=== PATIENT | male | born 1965 | race Caucasian/White ===

== ENCOUNTER 2021-01-26 10:58 | Emergency (ER) | payer BC ==
[2021-01-26] MEDS ORDERED: Apixaban 5 MG Tab PO ONE (11:50)
[2021-01-26] MEDS ORDERED: Metoprolol Tartrate 5 MG/5 ML SDV IVPUSH ONE (11:50)
[2021-01-26] MEDS: Metoprolol Succinate 50 MG Tab.ER PO ONE ×2 (12:25→13:21)
--- NOTE | 2021-01-26 12:32 | CR ---
Chest: 2 views of the chest were obtained. Comparison: No previous chest imaging is available. Heart is slightly enlarged. Tortuous thoracic aorta is seen. Lungs are clear with no acute parenchymal change. Mild scoliosis is noted within the spine. Mild degenerative change is scattered within the spine. Old healed left clavicle fracture is noted. Impression: 1. Heart size is slightly enlarged. Other findings as noted above which are chronic. 2. Nothing acute is seen. Diagnostic code #2
[2021-01-26] MEDS ORDERED: Diltiazem 100 MG in Sodium Chloride 0.9% 100 ML IV SCH (13:15)
--- NOTE | 2021-01-26 13:24 | EDM.PDOC ---
ED HPI GENERAL MEDICAL PROBLEM - General Chief Complaint: Cardiovascular Problem Stated Complaint: BLOOD PRESSURE Time Seen by Provider: 01/26/21 11:13 Source of Information: Reports: Patient, RN Notes Reviewed History Limitations: Reports: No Limitations - History of Present Illness INITIAL COMMENTS - FREE TEXT/NARRATIVE: Patient is a 55-year-old male presenting to the emergency department from the [facility] with complaints of new onset A. fib and hypertension. He was being seen in the clinic for some leg pain he has been having and was found to have an irregular rhythm and elevated blood pressure. Patient reports that he has had no symptoms associated this. Denies any chest pain, shortness of breath, or palpitations. He has not seen a doctor in the last 6 years, therefore is difficult to say how long he was in A. fib. He has no chronic medical conditions. Only medications he takes are naproxen and a multivitamin. On arrival to ER, blood pressure was significant elevated at 211/83, heart rate 125 and irregular. - Related Data Allergies Allergy/AdvReac Type Severity Reaction Status Date / Time No Known Allergies Allergy Verified 01/26/21 11:21 Home Meds: Home Meds Multivitamin [Multi-Vitamin Daily] 1 tab PO DAILY 01/26/21 [History] Naproxen Sodium [Aleve] 220 mg PO DAILY PRN 01/26/21 [History] Past Medical History - Past Health History Medical/Surgical History: Denies Medical/Surgical History - Past Surgical History Musculoskeletal Surgical History: Reports: Knee Replacement Social & Family History - Tobacco Use Tobacco Use Status *Q: Current Every Day Tobacco User Years of Tobacco use: 30 Packs/Tins Daily: 1 Used Tobacco, but Quit: No Second Hand Smoke Exposure: No - Caffeine Use Caffeine Use: Reports: Coffee, Soda - Recreational Drug Use Recreational Drug Use: No ED ROS GENERAL - Review of Systems Review Of Systems: Comprehensive ROS is negative, except as noted in HPI. ED EXAM, GENERAL - Physical Exam Exam: See Below General Appearance: Alert, WD/WN, No Apparent Distress Respiratory/Chest: No Respiratory Distress, Lungs Clear, Normal Breath Sounds, No Accessory Muscle Use, Chest Non-Tender Cardiovascular: Normal Peripheral Pulses, No Edema, No Gallop, No JVD, No Murmur, No Rub, Tachycardia, Irregularly Irregular GI/Abdominal: Normal Bowel Sounds, Soft, Non-Tender, No Organomegaly, No Distention, No Abnormal Bruit, No Mass Extremities: Normal Inspection, Normal Range of Motion, Non-Tender, Normal Capillary Refill, No Pedal Edema Neurological: Alert, Oriented, CN II-XII Intact, Normal Cognition, Normal Gait, Normal Reflexes, No Motor/Sensory Deficits Psychiatric: Normal Affect, Normal Mood Skin Exam: Warm, Dry, Intact, Normal Color, No Rash #1 Interpretation EKG Date: 01/26/21 Time: 11:24 Rhythm: NSR Rate (Beats/Min): 123 [place]: LAD-Left [place] Deviation P-Wave: Absent QRS: Normal ST-T: Depressed QT: Prolonged Comparison: NA - No Prior EKG EKG Interpretation Comments: A. fib with rate 95 to 150/min Left axis deviation Left anterior fascicular block pattern ST segment depression [id number],2,3,&abef\spelled-consider ischemia QTC is markedly prolonged EKG interpreted by Dr. Ivonne CAST Course - Vital Signs Last Recorded V/S: Last Vital Signs Temp 97.6 F 01/26/21 11:26 Pulse 109 H 01/26/21 12:25 Resp 17 01/26/21 11:26 BP 201/102 H 01/26/21 14:06 Pulse Ox 98 01/26/21 11:26 - Orders/Labs/Meds Labs: Laboratory Tests 01/26/21 01/26/21 01/26/21 Range/Units 11:37 11:37 11:37 WBC 7.00 (4.23-9.07) K/mm3 RBC 5.40 (4.63-6.08) M/mm3 Hgb 16.3 (13.7-17.5) gm/dl Hct 48.2 (40.1-51.0) % MCV 89.3 (79.0-92.2) fl MCH 30.2 (25.7-32.2) pg MCHC 33.8 (32.2-35.5) g/dl RDW Std Deviation 46.2 H (35.1-43.9) fL Plt Count 211 (163-337) K/mm3 MPV 10.9 (9.4-12.3) fl Neut % (Auto) 71.3 H (34.0-67.9) % Lymph % (Auto) 18.7 L (21.8-53.1) % [place] % (Auto) 7.6 (5.3-12.2) % Eos % (Auto) 1.7 (0.8-7.0) Baso % (Auto) 0.6 (0.1-1.2) % Neut # (Auto) 4.99 (1.78-5.38) K/mm3 Lymph # (Auto) 1.31 L (1.32-3.57) K/mm3 [place] # (Auto) 0.53 (0.30-0.82) K/mm3 Eos # (Auto) 0.12 (0.04-0.54) K/mm3 Baso # (Auto) 0.04 (0.01-0.08) K/mm3 Sodium 142 (136-145) mEq/L Potassium 4.4 (3.5-5.1) mEq/L Chloride 105 (98-107) mEq/L Carbon Dioxide 25 (21-32) mEq/L Anion Gap 16.4 H (5-15) BUN 17 (7-18) mg/dL Creatinine 1.1 (0.7-1.3) mg/dL Est Cr Clr Drug Dosing 74.98 mL/min Estimated GFR (MDRD) > 60 (>60) mL/min BUN/Creatinine Ratio 15.5 (14-18) Glucose 141 H (70-99) mg/dL Calcium 9.5 (8.5-10.1) mg/dL Magnesium 2.0 (1.8-2.4) mg/dL Total Bilirubin 2.3 H (0.2-1.0) mg/dL AST 24 (15-37) U/L ALT 33 (16-63) U/L Alkaline Phosphatase 132 H (46-116) U/L Troponin I 0.113 H* (0.00-0.056) ng/mL NT-Pro-B Natriuret Pep 2559 H (0-125) pg/mL Total Protein 7.8 (6.4-8.2) g/dl Albumin 5.0 (3.4-5.0) g/dl Globulin 2.8 gm/dL Albumin/Globulin Ratio 1.8 (1-2) Urine Color (Yellow) Urine Appearance (Clear) Urine pH (5.0-8.0) Ur Specific [place] (1.005-1.030) Urine Protein (Negative) Urine Glucose (UA) (Negative) Urine Ketones (Negative) Urine Occult Blood (Negative) Urine Nitrite (Negative) Urine Bilirubin (Negative) Urine Urobilinogen (0.2-1.0) Ur Leukocyte Esterase (Negative) Urine RBC (0-5) /hpf Urine WBC (0-5) /hpf Ur Epithelial Cells (0-5) /hpf Urine Bacteria (FEW) /hpf Urine Mucus (FEW) /hpf SARS-CoV-2 RNA (SABRINA) (NEGATIVE) 01/26/21 01/26/21 Range/Units 12:10 13:10 WBC (4.23-9.07) K/mm3 RBC (4.63-6.08) M/mm3 Hgb (13.7-17.5) gm/dl Hct (40.1-51.0) % MCV (79.0-92.2) fl MCH (25.7-32.2) pg MCHC (32.2-35.5) g/dl RDW Std Deviation (35.1-43.9) fL Plt Count (163-337) K/mm3 MPV (9.4-12.3) fl Neut % (Auto) (34.0-67.9) % Lymph % (Auto) (21.8-53.1) % [place] % (Auto) (5.3-12.2) % Eos % (Auto) (0.8-7.0) Baso % (Auto) (0.1-1.2) % Neut # (Auto) (1.78-5.38) K/mm3 Lymph # (Auto) (1.32-3.57) K/mm3 [place] # (Auto) (0.30-0.82) K/mm3 Eos # (Auto) (0.04-0.54) K/mm3 Baso # (Auto) (0.01-0.08) K/mm3 Sodium (136-145) mEq/L Potassium (3.5-5.1) mEq/L Chloride (98-107) mEq/L Carbon Dioxide (21-32) mEq/L Anion Gap (5-15) BUN (7-18) mg/dL Creatinine (0.7-1.3) mg/dL Est Cr Clr Drug Dosing mL/min Estimated GFR (MDRD) (>60) mL/min BUN/Creatinine Ratio (14-18) Glucose (70-99) mg/dL Calcium (8.5-10.1) mg/dL Magnesium (1.8-2.4) mg/dL Total Bilirubin (0.2-1.0) mg/dL AST (15-37) U/L ALT (16-63) U/L Alkaline Phosphatase (46-116) U/L Troponin I (0.00-0.056) ng/mL NT-Pro-B Natriuret Pep (0-125) pg/mL Total Protein (6.4-8.2) g/dl Albumin (3.4-5.0) g/dl Globulin gm/dL Albumin/Globulin Ratio (1-2) Urine Color Light yellow (Yellow) Urine Appearance Clear (Clear) Urine pH 7.0 (5.0-8.0) Ur Specific [place] 1.015 (1.005-1.030) Urine Protein Negative (Negative) Urine Glucose (UA) Negative (Negative) Urine Ketones Negative (Negative) Urine Occult Blood Negative (Negative) Urine Nitrite Negative (Negative) Urine Bilirubin Negative (Negative) Urine Urobilinogen 0.2 (0.2-1.0) Ur Leukocyte Esterase Negative (Negative) Urine RBC Not seen (0-5) /hpf Urine WBC Not seen (0-5) /hpf Ur Epithelial Cells Not seen (0-5) /hpf Urine Bacteria Rare (FEW) /hpf Urine Mucus Not seen (FEW) /hpf SARS-CoV-2 RNA (SABRINA) Negative (NEGATIVE) Meds: Medications Discontinued Medications Generic Name Dose Route Start Last Admin Trade Name Emmanuelq PRN Reason Stop Dose Admin Apixaban 5 mg 01/26/21 11:50 01/26/21 12:21 Apixaban 5 Mg Tab PO 01/26/21 11:51 5 mg ONETIME ONE Administration Enalaprilat 1.25 mg 01/26/21 13:57 01/26/21 14:06 Enalaprilat 1.25 Mg/Ml Sdv IVPUSH 01/26/21 13:58 1.25 mg ONETIME ONE Administration Hydralazine HCl 15 mg 01/26/21 13:31 01/26/21 13:44 Hydralazine 20 Mg/Ml Sdv IVPUSH 01/26/21 13:32 15 mg ONETIME ONE Administration Diltiazem HCl 100 mg/ Sodium 100 mls @ 10 mls/hr 01/26/21 13:15 01/26/21 14:05 Chloride IV 10 mg/hr TITRATE ADEOLA 10 mls/hr Titration Protocol 10 MG/HR Metoprolol Succinate 50 mg 01/26/21 11:50 01/26/21 12:25 Metoprolol Succinate 50 Mg Tab.Er PO 01/26/21 11:51 50 mg ONETIME ONE Administration Metoprolol Tartrate 5 mg 01/26/21 11:50 01/26/21 12:13 Metoprolol Tartrate 5 Mg/5 Ml Sdv IVPUSH 01/26/21 11:51 5 mg ONETIME ONE Administration - Re-Assessments/Exams Free Text/Narrative Re-Assessment/Exam: Is a 55-year-old male presenting to the emergency department with complaints of new onset A. fib and hypertension. He was found to be significantly hypertensive and tachycardic upon arrival to ER. Heart rate is irregular in A. fib. EKG completed on triage shows A. fib with a rhythm 95 to 150/min. He does have ST segment depression in V2 to V6, 2, 3, and aVF as well as QT prolongation. He has had no symptoms of chest pain, palpitations, or shortness of breath. I have ordered blood work, EKG, chest x-ray. He will be given Lopressor 5 mg IV, Eliquis 5 mg p.o., and metoprolol succinate 50 mg. 01/26/21 13:24 Medications given, heart rate has come down to 90s to low 100s. Last blood pressure 171/129. Hematology shows troponin elevated at 0.113 as well as a proBNP elevated at 2559. Case was discussed with glass cut off supervisor on-call at [facility], Dr. Priest. He recommended that the patient be started on a diltiazem drip at 5 mg/h. He also recommended that hydralazine be used to further reduce his blood pressure to a more normalized range. He would like patient transferred to [place] for further cardiology work-up. Case was discussed with hospitalist, Dr. Olson. He has accepted the patient for transfer. Patient updated of this and he is in agreement. 01/26/21 1330 Blood pressure continue to be elevated at blood pressure continues to be elevated after starting the diltiazem drip. Last blood pressure reading is 199/139. I have ordered hydralazine 15 mg IV to be given now.. 01/26/21 14:00 Blood pressure continues to be elevated. Last blood pressure reading was 204/131 after the hydralazine. Case was discussed with Dr. Ivonne MD. Recommend enalapril 1.25 mg IV and increase Cardizem drip to 10 mg/h. Departure - Departure Time of Disposition: 14:15 Disposition: DC/Tfer to [facility] Reason for Transfer *Q: Other Condition: Good Clinical Impression: Atrial fibrillation with RVR, Elevated troponin Hypertension Qualifiers: Hypertension type: unspecified Qualified Code(s): I10 - Essential (primary) hypertension Referrals: PCP,None [Primary Care Provider] - Forms: ED Department Discharge Sepsis Event Note (ED) - Evaluation Sepsis Screening Result: No Definite Risk - Focused Exam Vital Signs: Vital Signs Temp Pulse Pulse Resp BP BP Pulse Ox 01/26/21 14:06 201/102 H 01/26/21 12:25 109 H 171/129 H 01/26/21 12:13 114 H 169/114 H 01/26/21 11:26 97.6 F 125 H 17 211/138 H 98
[2021-01-26] MEDS ORDERED: hydrALAZINE 20 MG/ML SDV IVPUSH ONE (13:31)
[2021-01-26] MEDS ORDERED: Enalaprilat 1.25 MG/ML SDV IVPUSH ONE (13:57)
== END 2021-01-26 14:18 ==
LOC: JD.ED 10:58
DX: I48.91 Unspecified atrial fibrillation (principal); I10 Essential (primary) hypertension; R79.89 Other specified abnormal findings of blood chemistry; Z72.0 Tobacco use; Z20.822 Contact with and (suspected) exposure to COVID-19
CPT/HCPCS: 36415; 71046; 71046-26; 80053; 81001; 83735; 83880; 84484; 85025; 93005; 93010; 96365; 96375; 99283; 99285-25; A9270-GY; J0360; J3490; U0002